=== PATIENT | male | born 1970 | race African-American/Black ===

== ENCOUNTER 2019-02-25 19:55 | Emergency (ER) | payer MEDICAID ==
[~2019-02-25] VITALS: Ht 180.3 cm; Wt 100.0 kg
[2019-02-25 20:29] VITALS: BP 163/110
== END 2019-02-26 04:04 | disposition left against medical advice (07) ==
LOC: ER 19:55
DX: R05 Cough (principal); Z53.21 Procedure and treatment not carried out due to patient leaving prior to being seen by health care provider

== ENCOUNTER 2020-06-19 11:10 | Emergency (ER) | payer MEDICAID ==
[~2020-06-19] VITALS: Ht 177.8 cm; Wt 95.0 kg
[2020-06-19 11:28] VITALS: BP 187/102
[2020-06-19] MEDS ORDERED: KETOROLAC 60MG/2ML VIAL IM ONE (11:45)
[2020-06-19] MEDS ORDERED: T3 PO (12:28)
[2020-06-19] MEDS ORDERED: IBUP-2028 PO (12:28)
== END 2020-06-19 12:48 | disposition home or self-care (01) ==
LOC: ER 11:10
DX: G89.29 Other chronic pain (principal); M54.9 Dorsalgia, unspecified; M54.30 Sciatica, unspecified side; E78.00 Pure hypercholesterolemia, unspecified
CPT/HCPCS: 72100; 96372; 99283; J1885

== ENCOUNTER 2020-09-27 21:45 | Emergency (ER) | payer OTHER ==
[~2020-09-27] VITALS: Ht 177.8 cm; Wt 100.0 kg
[~2020-09-27 21:45] MED LIST: BACL-141 MT; IBUP-2028 PO; IBUP-2029 MT; LIDO700A15 TP; T3 PO
[2020-09-27 23:37] VITALS: BP 165/92
== END 2020-09-27 23:39 | disposition home or self-care (01) ==
LOC: ER 21:45
DX: S46.811A Strain of other muscles, fascia and tendons at shoulder and upper arm level, right arm, initial encounter (principal); E78.00 Pure hypercholesterolemia, unspecified; I10 Essential (primary) hypertension; X58.XXXA Exposure to other specified factors, initial encounter; Y93.89 Activity, other specified; Y92.89 Other specified places as the place of occurrence of the external cause; Y99.8 Other external cause status; Z79.899 Other long term (current) drug therapy
CPT/HCPCS: 99281

== ENCOUNTER 2020-10-02 14:16 | Emergency (ER) | payer OTHER ==
[~2020-10-02] VITALS: Ht 177.8 cm; Wt 100.0 kg
[2020-10-02 14:17] VITALS: BP 147/97
== END 2020-10-02 15:27 | disposition home or self-care (01) ==
LOC: ER 14:16
DX: M54.2 Cervicalgia (principal); E78.00 Pure hypercholesterolemia, unspecified; I10 Essential (primary) hypertension; Z79.899 Other long term (current) drug therapy
CPT/HCPCS: 99281

== ENCOUNTER 2022-09-20 22:32 | Emergency (ER) | payer MEDICAID, OTHER ==
[~2022-09-20] VITALS: Ht 177.8 cm; Wt 101.2 kg
[2022-09-20 23:12] VITALS: BP 162/106; O2SAT 100
[2022-09-21 02:44] LABS: EOSINOPHILS % 5.1 % (0.0-5.0); HEMATOCRIT. 43.7 % (42.0-52.0); HEMOGLOBIN. 14.6 g/dL (14.0-18.0); MEAN CORPUSCULAR HEMOGLOBIN 27.8 pg (28.0-32.0); MEAN CORPUSCULAR VOLUME 83.2 fL (80.0-94.0); MEAN PLATELET VOLUME 7.5 fl (7.4-10.4); MONOCYTES % 6.3 % (2.0-8.0); NEUTROPHILS % 45.6 % (40.0-76.0); PLATELET 244 x1000/uL (130-400); RED BLOOD CELL COUNT 5.26 mill/uL (4.7-6.1); RED CELL DISTRIBUTION WIDTH 14.6 % (11.6-14.6)
[2022-09-21 03:01] LABS: CHLORIDE 107 mEq/L (98-107)
[2022-09-21 03:01] LABS: CLARITY URINE CLEAR (CLEAR); COLOR URINE YELLOW (YELLOW); KETONES URINE NEGATIVE (NEGATIVE); LEUKOCYTE ESTERASE URINE NEGATIVE (NEGATIVE); NITRITE URINE NEGATIVE (NEGATIVE); OCCULT BLOOD URINE NEGATIVE (NEGATIVE); PROTEIN URINE NEGATIVE (NEGATIVE)
[2022-09-21] MEDS ORDERED: ONDA4TAB50 MT (03:38)
[2022-09-21] MEDS ORDERED: LOPE2CAP MT (03:38)
[2022-09-21 04:04] VITALS: PULSE 89; RESP 16; TEMP 98.8
== END 2022-09-21 04:06 | disposition home or self-care (01) ==
LOC: ER 22:32
DX: K52.9 Noninfective gastroenteritis and colitis, unspecified (principal); Z20.822 Contact with and (suspected) exposure to COVID-19
CPT/HCPCS: 36415; 80053; 81003; 85025; 87426; 87804; 99283